=== PATIENT | female | born 1960 | race Two or more races ===

== ENCOUNTER 2018-07-27 15:41 | Inpatient (IN) | payer MEDICAID, OTHER | END 2018-07-31 15:56 | disposition home or self-care (01) | LOC: CENTRAL 22:00 → ER 15:41 → OVERFLOW 21:07 → CENTRAL 22:19 | DX: G92 Toxic encephalopathy (principal); G93.41 Metabolic encephalopathy; E11.65 Type 2 diabetes mellitus with hyperglycemia; N39.0 Urinary tract infection, site not specified; F15.10 Other stimulant abuse, uncomplicated; F32.9 Major depressive disorder, single episode, unspecified; F41.9 Anxiety disorder, unspecified; I10 Essential (primary) hypertension ==

== ENCOUNTER 2019-08-06 21:46 | Emergency (ER) | payer MEDICAID ==
[~2019-08-06] VITALS: Ht 165.1 cm; Wt 72.6 kg
[~2019-08-06 21:46] MED LIST: AML5T PO; ATOR40TA52 PO; LOSA-69 PO
[2019-08-06 23:29] LABS: Urine Bacteria MANY /hpf (None Seen); Urine Blood Negative /uL (Negative); Urine Budding Yeast MODERATE /hpf (None Seen); Urine Hyaline Cast FEW /lpf (0 - 2); Urine Mucus FEW (None Seen); Urine Specific Gravity 1.007 (1.001-1.035); Urine WBC 120 /hpf (0 - 5); Urine WBC Clumps PRESENT /hpf (None Seen)
[2019-08-06 23:45] LABS: Alcohol, Urine < 3.0 mg/dL (0-10); Amphetamine Screen, Urine POSITIVE (NEGATIVE); Barbiturate Scree,Urine NEGATIVE (NEGATIVE); Benzodiazephine Screen, Urine NEGATIVE (NEGATIVE); Cannabinoid Screen, Urine NEGATIVE (NEGATIVE); Cocaine Screen, Urine NEGATIVE (NEGATIVE); Phencyclidine Screen, Urine NEGATIVE (NEGATIVE)
[2019-08-06 23:52] LABS: Opiate Scree,Urine NEGATIVE (NEGATIVE)
[2019-08-06 23:55] LABS: Eosinophils # (auto) 0.1 10 ^3/uL (0-0.8); Hemoglobin 13.5 g/dL (12.2-16.2); Lymphocytes # (auto) 1.3 10 ^3/uL (0.4-5.4); Monocytes # (auto) 0.8 10 ^3/uL (0-1.3); Red Cell Distribution Width 13.2 % (11.8-14.3)
[2019-08-06 23:57] LABS: Basophils # (auto) 0.1 10 ^3/uL (0-0.2); Basophils % (auto) 0.7 % (0.0-2.0); Eosinophils % (auto) 1.5 % (0.0-7.0); Hematocrit 41.5 % (36.0-46.0); Lymphocytes % (auto) 14.7 % (10.0-50.0); Mean Corpuscular Hemoglobin 26.7 pg (28.0-32.0); Mean Corpuscular Hgb Conc. 32.5 g/dL (32.0-36.0); Mean Corpuscular Volume 82.3 fL (80.0-100.0); Monocytes % (auto) 8.6 % (0.0-12.0); Neutrophils # (auto) 6.5 10 ^3/uL (1.6-8.6); Neutrophils % (auto) 74.5 % (37.0-80.0); Platelet Count (auto) 147 10^3/uL (140-450); Red Blood Cells 5.05 10^6/uL (4.0-5.20); White Blood Cell 8.8 10^3/uL (4.4-10.8)
[2019-08-07 00:13] LABS: Albumin 3.1 g/dL (3.4-5.0); Anion Gap 6 (5-15); BUN/Creatinine Ratio 14.5; Blood Urea Nitrogen 25 mg/dL (7-18); Calcium 9.2 mg/dL (8.5-10.1); Carbon Dioxide 27 mmol/L (21-32); Chloride 105 mmol/L (98-107); GFR African American 39 mL/min; GFR Non-African American 32 mL/min; Glucose 291 mg/dL (74-106); Potassium 3.7 mmol/L (3.5-5.1); Sodium 138 mmol/L (136-145)
[2019-08-07] MEDS ORDERED: cefTRIAXone 1GM/50ML D5W 50 ML IV ONE (00:15)
[2019-08-07] MEDS ORDERED: SODIUM CHLORIDE 0.9% 2,000 ML IV ONE (00:15)
[2019-08-07 00:18] LABS: Alanine Aminotransferase 16 U/L (13-56); Alkaline Phosphatase 79 U/L (45-117); Aspartate Aminotransferase 14 U/L (15-37); Bilirubin, Total 0.5 mg/dL (0.2-1.0); Total Protein 7.7 g/dL (6.4-8.2)
[2019-08-07 00:24] LABS: Blood Alcohol < 3.0 mg/dL (0-5)
[2019-08-07 01:00] VITALS: BP 168/97
== END 2019-08-07 02:00 | disposition home or self-care (01) ==
LOC: EDBD 21:46 → ER 21:46
DX: R41.82 Altered mental status, unspecified (principal); F19.10 Other psychoactive substance abuse, uncomplicated; N39.0 Urinary tract infection, site not specified; E11.9 Type 2 diabetes mellitus without complications; I10 Essential (primary) hypertension; E78.5 Hyperlipidemia, unspecified
CPT/HCPCS: 36415; 70450; 80053; 80307; 80320; 81001; 82010; 82962; 83605; 83880; 84484; 85025; 87040; 87086; 93005; 96365; 99285; J0696; J7030

== ENCOUNTER 2020-06-22 20:10 | Inpatient (IN) | payer MEDICAID ==
[~2020-06-22] VITALS: Ht 167.6 cm; Wt 62.5 kg
[2020-06-22 21:18] LABS: Basophils # (auto) 0.1 10 ^3/uL (0-0.2); Eosinophils # (auto) 0.1 10 ^3/uL (0-0.8); Hemoglobin 12.9 g/dL (12.2-16.2); Monocytes # (auto) 0.4 10 ^3/uL (0-1.3); Neutrophils # (auto) 6.6 10 ^3/uL (1.6-8.6); Nucleated Red Blood Cells % 0.1 %; White Blood Cell 8.7 10^3/uL (4.4-10.8)
[2020-06-22 21:20] LABS: Basophils % (auto) 0.8 % (0.0-2.0); Eosinophils % (auto) 0.8 % (0.0-7.0); Hematocrit 39.2 % (36.0-46.0); Lymphocytes # (auto) 1.6 10 ^3/uL (0.4-5.4); Lymphocytes % (auto) 18.1 % (10.0-50.0); Mean Corpuscular Hemoglobin 26.8 pg (28.0-32.0); Mean Corpuscular Hgb Conc. 32.9 g/dL (32.0-36.0); Mean Corpuscular Volume 81.2 fL (80.0-100.0); Monocytes % (auto) 4.2 % (0.0-12.0); Neutrophils % (auto) 76.1 % (37.0-80.0); Platelet Count (auto) 170 10^3/uL (140-450); Red Blood Cells 4.83 10^6/uL (4.0-5.20); Red Cell Distribution Width 14.1 % (11.8-14.3)
[2020-06-22 21:35] LABS: Albumin 3.4 g/dL (3.4-5.0); Calcium 9.4 mg/dL (8.5-10.1); Chloride 107 mmol/L (98-107); Potassium 3.9 mmol/L (3.5-5.1); Sodium 140 mmol/L (136-145)
[2020-06-22 21:38] LABS: Lactic Acid w/Reflex 2.3 mmol/L (0.4-2.0)
[2020-06-22 21:42] LABS: Alanine Aminotransferase 25 U/L (13-56); Alkaline Phosphatase 88 U/L (45-117); Anion Gap 7 (5-15); Aspartate Aminotransferase 21 U/L (15-37); BUN/Creatinine Ratio 13.8; Bilirubin, Total 0.4 mg/dL (0.2-1.0); Blood Urea Nitrogen 15 mg/dL (7-18); Carbon Dioxide 26 mmol/L (21-32); GFR African American 66 mL/min; GFR Non-African American 54 mL/min; Glucose 198 mg/dL (74-106); Total Protein 7.8 g/dL (6.4-8.2)
[2020-06-22 21:45] LABS: INR 1.04 (0.9-1.15); Partial Thromboplastin Time 25.2 sec (23.0-31.2)
[2020-06-23] MEDS ORDERED: DEXTROSE (50%) 50ML SYRG IV PRN (05:45)
[2020-06-23] MEDS ORDERED: NITROGLYCERIN 0.4 MG SL TAB SL PRN (05:45)
[2020-06-23] MEDS ORDERED: ONDANSETRON HCL 4 MG/2 ML VIAL IV PRN (05:45)
[2020-06-23] MEDS ORDERED: HYDROcodone-ACET 5/325MG TAB PO PRN (05:45)
[2020-06-23] MEDS ORDERED: ACETAMINOPHEN 325 MG TAB PO PRN (05:45)
[2020-06-23] MEDS ORDERED: MORPHINE SULF INJ 2 MG/ML SYRINGE 1ML IV PRN (05:45)
[2020-06-23] MEDS ORDERED: DOCUSATE SOD 100 MG CAP PO PRN (05:45)
[2020-06-23] MEDS: SODIUM CHLORIDE 0.9% 1,000 ML IV SCH ×2 (06:11→22:23)
[2020-06-23 06:34] LABS: Urine Bacteria FEW /hpf (None Seen); Urine Blood 1+ /uL (Negative); Urine Specific Gravity 1.022 (1.001-1.035); Urine WBC 1040 /hpf (0 - 5); Urine WBC Clumps PRESENT /hpf (None Seen)
[2020-06-23 06:56] LABS: Alcohol, Urine < 3.0 mg/dL (0-10); Amphetamine Screen, Urine POSITIVE (NEGATIVE); Barbiturate Scree,Urine NEGATIVE (NEGATIVE); Benzodiazephine Screen, Urine NEGATIVE (NEGATIVE); Cannabinoid Screen, Urine NEGATIVE (NEGATIVE); Cocaine Screen, Urine NEGATIVE (NEGATIVE); Opiate Scree,Urine NEGATIVE (NEGATIVE); Phencyclidine Screen, Urine NEGATIVE (NEGATIVE)
[2020-06-23] MEDS: InsuLIN REG 1unit/0.01ml Soln (100units/ml) SC SCH ×4 (06:57→22:00)
[2020-06-23] MEDS: ACCU-CHEK COMFORT CURVE STRIP VI SCH ×4 (06:57→22:22)
[2020-06-23 08:00] VITALS: BP 156/81
[2020-06-23 08:34] LABS: Basophils # (auto) 0.1 10 ^3/uL (0-0.2); Eosinophils # (auto) 0.1 10 ^3/uL (0-0.8); Lymphocytes # (auto) 1.4 10 ^3/uL (0.4-5.4); Lymphocytes % (auto) 14.6 % (10.0-50.0); Monocytes # (auto) 0.5 10 ^3/uL (0-1.3); Red Blood Cells 4.69 10^6/uL (4.0-5.20); White Blood Cell 9.4 10^3/uL (4.4-10.8)
[2020-06-23 08:38] LABS: Basophils % (auto) 0.7 % (0.0-2.0); Eosinophils % (auto) 1.1 % (0.0-7.0); Hematocrit 37.9 % (36.0-46.0); Hemoglobin 12.5 g/dL (12.2-16.2); Mean Corpuscular Hemoglobin 26.6 pg (28.0-32.0); Mean Corpuscular Hgb Conc. 32.9 g/dL (32.0-36.0); Mean Corpuscular Volume 80.8 fL (80.0-100.0); Monocytes % (auto) 5.2 % (0.0-12.0); Neutrophils # (auto) 7.4 10 ^3/uL (1.6-8.6); Neutrophils % (auto) 78.4 % (37.0-80.0); Platelet Count (auto) 169 10^3/uL (140-450); Red Cell Distribution Width 14.6 % (11.8-14.3)
[2020-06-23 08:52] LABS: Potassium 3.5 mmol/L (3.5-5.1)
[2020-06-23 08:57] LABS: Albumin 3.3 g/dL (3.4-5.0); BUN/Creatinine Ratio 21.3; Bilirubin, Total 0.6 mg/dL (0.2-1.0); Calcium 9.1 mg/dL (8.5-10.1); Total Protein 7.6 g/dL (6.4-8.2)
[2020-06-23 09:00] VITALS: BP 156/81
[2020-06-23] MEDS: cefTRIAXone 1GM/50ML D5W 50 ML IV SCH (09:01)
[2020-06-23] MEDS: MULTIPLE VITAMIN TAB PO SCH (10:00)
[2020-06-23] MEDS: ASCORBIC ACID 500 MG TAB PO SCH ×2 (10:00→22:22)
[2020-06-23] MEDS: ZINC SULFATE 220mg CAP or TAB PO SCH (10:00)
[2020-06-23] MEDS: FAMOTIDINE 20 MG TAB PO SCH ×2 (10:00→22:22)
[2020-06-23] MEDS: ENOXAPARIN SOD 40 MG/0.4 ML SYRINGE SC SCH (10:17)
[2020-06-23 13:27] VITALS: BP 164/94
[2020-06-23] MEDS: LORazepam 2MG/ML-1ML VIAL IV PRN (14:09)
[2020-06-23 17:00] VITALS: BP 121/71
[2020-06-23 20:00] VITALS: BP 134/71
[2020-06-23 20:45] VITALS: BP_SYST 134; BP_SYST 154; BP_DIAS 66; BP_DIAS 71
[2020-06-24 04:30] VITALS: BP 149/70
[2020-06-24] MEDS: InsuLIN REG 1unit/0.01ml Soln (100units/ml) SC SCH ×4 (06:25→22:10)
[2020-06-24] MEDS: ACCU-CHEK COMFORT CURVE STRIP VI SCH ×4 (06:25→22:10)
[2020-06-24] MEDS: ASCORBIC ACID 500 MG TAB PO SCH ×2 (08:10→22:10)
[2020-06-24] MEDS: FAMOTIDINE 20 MG TAB PO SCH ×2 (08:10→22:10)
[2020-06-24] MEDS: ZINC SULFATE 220mg CAP or TAB PO SCH (08:10)
[2020-06-24] MEDS: MULTIPLE VITAMIN TAB PO SCH (08:10)
[2020-06-24] MEDS: ENOXAPARIN SOD 40 MG/0.4 ML SYRINGE SC SCH (08:10)
[2020-06-24] MEDS: cefTRIAXone 1GM/50ML D5W 50 ML IV SCH (08:10)
[2020-06-24 08:11] LABS: Basophils # (auto) 0 10 ^3/uL (0-0.2); Basophils % (auto) 0.8 % (0.0-2.0); Eosinophils # (auto) 0.1 10 ^3/uL (0-0.8); Eosinophils % (auto) 2.2 % (0.0-7.0); Hematocrit 37.5 % (36.0-46.0); Hemoglobin 12.6 g/dL (12.2-16.2); Lymphocytes # (auto) 1.6 10 ^3/uL (0.4-5.4); Lymphocytes % (auto) 28.1 % (10.0-50.0); Mean Corpuscular Hemoglobin 27.2 pg (28.0-32.0); Mean Corpuscular Hgb Conc. 33.6 g/dL (32.0-36.0); Monocytes # (auto) 0.4 10 ^3/uL (0-1.3); Monocytes % (auto) 7.1 % (0.0-12.0); Neutrophils # (auto) 3.5 10 ^3/uL (1.6-8.6); Neutrophils % (auto) 61.8 % (37.0-80.0); Nucleated Red Blood Cells % 0.1 %; Platelet Count (auto) 150 10^3/uL (140-450); Red Blood Cells 4.63 10^6/uL (4.0-5.20); Red Cell Distribution Width 14.4 % (11.8-14.3); White Blood Cell 5.7 10^3/uL (4.4-10.8)
[2020-06-24 08:32] VITALS: BP 121/61
[2020-06-24 08:33] LABS: Albumin 3.2 g/dL (3.4-5.0); Calcium 8.8 mg/dL (8.5-10.1); Potassium 3.5 mmol/L (3.5-5.1)
[2020-06-24 08:37] LABS: BUN/Creatinine Ratio 17.7; Bilirubin, Total 0.6 mg/dL (0.2-1.0); Total Protein 7.2 g/dL (6.4-8.2)
[2020-06-24] MEDS: ASPirin 81 mg TAB PO SCH (09:25)
[2020-06-24 13:07] VITALS: BP 163/114
[2020-06-24] MEDS: SODIUM CHLORIDE 0.9% 1,000 ML IV SCH (14:24)
[2020-06-24] MEDS: LORazepam 2MG/ML-1ML VIAL IV PRN ×3 (14:24→22:50)
[2020-06-24 17:10] VITALS: BP 150/86
[2020-06-24 22:00] VITALS: BP 163/80
[2020-06-24] MEDS: ATORVASTATIN 20 MG TAB PO SCH (22:55)
[2020-06-25 05:00] VITALS: BP 151/76
[2020-06-25] MEDS: ACCU-CHEK COMFORT CURVE STRIP VI SCH ×4 (06:24→22:50)
[2020-06-25] MEDS: InsuLIN REG 1unit/0.01ml Soln (100units/ml) SC SCH ×5 (06:30→23:31)
[2020-06-25] MEDS: SODIUM CHLORIDE 0.9% 1,000 ML IV SCH (07:45)
[2020-06-25 09:00] VITALS: BP 182/93
[2020-06-25] MEDS: cefTRIAXone 1GM/50ML D5W 50 ML IV SCH (09:26)
[2020-06-25] MEDS: ASCORBIC ACID 500 MG TAB PO SCH ×2 (09:27→22:50)
[2020-06-25] MEDS: ZINC SULFATE 220mg CAP or TAB PO SCH (09:27)
[2020-06-25] MEDS: ENOXAPARIN SOD 40 MG/0.4 ML SYRINGE SC SCH (09:27)
[2020-06-25] MEDS: MULTIPLE VITAMIN TAB PO SCH (09:27)
[2020-06-25] MEDS: FAMOTIDINE 20 MG TAB PO SCH ×2 (09:27→22:50)
[2020-06-25] MEDS: ASPirin 81 mg TAB PO SCH (09:27)
[2020-06-25] MEDS ORDERED: METOPROLOL TARTRATE 50 MG TAB PO ONE (12:30)
[2020-06-25] MEDS: LORazepam 2MG/ML-1ML VIAL IV PRN ×2 (13:51→22:50)
[2020-06-25 17:00] VITALS: BP 146/85
[2020-06-25] MEDS ORDERED: LORazepam 2MG/ML-1ML VIAL IV PRN (20:30)
[2020-06-25 21:41] VITALS: BP 169/92
[2020-06-25] MEDS: ATORVASTATIN 20 MG TAB PO SCH (22:50)
[2020-06-25] MEDS: METOPROLOL TARTRATE 50 MG TAB PO SCH (22:50)
[2020-06-26] MEDS: SODIUM CHLORIDE 0.9% 1,000 ML IV SCH ×2 (01:08→17:43)
[2020-06-26] MEDS: LORazepam 2MG/ML-1ML VIAL IV PRN ×2 (05:31→22:05)
[2020-06-26 06:09] VITALS: BP 163/94
[2020-06-26] MEDS: ACCU-CHEK COMFORT CURVE STRIP VI SCH ×4 (06:42→22:00)
[2020-06-26] MEDS: InsuLIN REG 1unit/0.01ml Soln (100units/ml) SC SCH ×4 (06:43→22:00)
[2020-06-26 09:00] VITALS: BP 162/88
[2020-06-26 09:32] LABS: Folate (Folic Acid) 12.91 ng/mL (5.38-24)
[2020-06-26] MEDS: cefTRIAXone 1GM/50ML D5W 50 ML IV SCH (09:57)
[2020-06-26] MEDS: ASPirin 81 mg TAB PO SCH (09:58)
[2020-06-26] MEDS: METOPROLOL TARTRATE 50 MG TAB PO SCH ×2 (09:58→12:16)
[2020-06-26] MEDS: ZINC SULFATE 220mg CAP or TAB PO SCH (09:58)
[2020-06-26] MEDS: MULTIPLE VITAMIN TAB PO SCH (09:59)
[2020-06-26] MEDS: FAMOTIDINE 20 MG TAB PO SCH ×2 (09:59→22:00)
[2020-06-26] MEDS: ENOXAPARIN SOD 40 MG/0.4 ML SYRINGE SC SCH (09:59)
[2020-06-26] MEDS: ASCORBIC ACID 500 MG TAB PO SCH ×2 (09:59→22:00)
[2020-06-26] MEDS ORDERED: GADOTERATE MEG 7.5 MMOL/15ml INJ (0.5MMOL/ml) IV ONE (11:56)
[2020-06-26 13:00] VITALS: BP 158/100
[2020-06-26] MEDS: cloNIDine HCL 0.1 MG TAB PO PRN (15:55)
[2020-06-26 17:00] VITALS: BP 147/81
[2020-06-26 20:00] VITALS: BP 104/75
[2020-06-26 21:00] VITALS: BP 104/75
[2020-06-26] MEDS: ATORVASTATIN 20 MG TAB PO SCH (22:00)
[2020-06-26] MEDS ORDERED: MIRTAZAPINE 30 MG TAB PO SCH (22:00)
[2020-06-27] VITALS (7 sets, daily range): BP systolic 91–164; BP diastolic 51–116
[2020-06-27] MEDS: InsuLIN REG 1unit/0.01ml Soln (100units/ml) SC SCH ×4 (06:42→22:00)
[2020-06-27] MEDS: ACCU-CHEK COMFORT CURVE STRIP VI SCH ×4 (06:46→22:00)
[2020-06-27] MEDS: FAMOTIDINE 20 MG TAB PO SCH ×2 (10:00→22:00)
[2020-06-27] MEDS: ASCORBIC ACID 500 MG TAB PO SCH ×2 (10:00→22:00)
[2020-06-27] MEDS: MULTIPLE VITAMIN TAB PO SCH (10:00)
[2020-06-27] MEDS: ZINC SULFATE 220mg CAP or TAB PO SCH (10:00)
[2020-06-27] MEDS: LORazepam 2MG/ML-1ML VIAL IV PRN ×2 (10:12→23:30)
[2020-06-27] MEDS: cefTRIAXone 1GM/50ML D5W 50 ML IV SCH (12:40)
[2020-06-27] MEDS: SODIUM CHLORIDE 0.9% 1,000 ML IV SCH (12:40)
[2020-06-27] MEDS: ENOXAPARIN SOD 40 MG/0.4 ML SYRINGE SC SCH (12:41)
[2020-06-27] MEDS: ASPirin 81 mg TAB PO SCH (12:41)
[2020-06-27] MEDS: MIRTAZAPINE 30 MG TAB PO SCH (22:00)
[2020-06-27] MEDS: ATORVASTATIN 20 MG TAB PO SCH (22:00)
[2020-06-27 22:29] LABS: INR 1.04 (0.9-1.15)
[2020-06-27] MEDS: cloNIDine HCL 0.1 MG TAB PO PRN (23:30)
[2020-06-28] MEDS: SODIUM CHLORIDE 0.9% 1,000 ML IV SCH ×2 (02:39→19:05)
[2020-06-28 05:00] VITALS: BP 105/58
[2020-06-28] MEDS: InsuLIN REG 1unit/0.01ml Soln (100units/ml) SC SCH ×4 (06:28→22:00)
[2020-06-28] MEDS: ACCU-CHEK COMFORT CURVE STRIP VI SCH ×4 (06:29→22:00)
[2020-06-28 08:00] VITALS: BP 135/86
[2020-06-28] MEDS ORDERED: LIDOCAINE VISCOUS 2% 15ML UD PO ONE (08:15)
[2020-06-28] MEDS ORDERED: MIDAZOLAM HCL 1MG/1ML-2 ML VIAL IV ONE (08:15)
[2020-06-28] MEDS ORDERED: fentaNYL CITRATE 100 MCG/2 ML VL IV ONE (08:15)
[2020-06-28] MEDS ORDERED: ONDANSETRON HCL 4 MG/2 ML VIAL IV ONE (08:15)
[2020-06-28 09:00] VITALS: BP 158/84
[2020-06-28] MEDS: ASPirin 81 mg TAB PO SCH (10:55)
[2020-06-28] MEDS: FAMOTIDINE 20 MG TAB PO SCH ×2 (10:55→22:00)
[2020-06-28] MEDS: cefTRIAXone 1GM/50ML D5W 50 ML IV SCH (10:55)
[2020-06-28 13:00] VITALS: BP 154/81
[2020-06-28] MEDS: cloNIDine HCL 0.1 MG TAB PO SCH (14:43)
[2020-06-28] MEDS: LORazepam 2MG/ML-1ML VIAL IV PRN (18:32)
[2020-06-28 20:00] VITALS: BP 160/90
[2020-06-28 22:00] VITALS: BP 175/110
[2020-06-28] MEDS: ATORVASTATIN 20 MG TAB PO SCH (22:00)
[2020-06-28] MEDS: MIRTAZAPINE 30 MG TAB PO SCH (22:00)
[2020-06-29] MEDS ORDERED: LABETALOL HCL 5 MG/ML 4ML SYRINGE IV ONE ×2 (01:15→01:45)
[2020-06-29 05:00] VITALS: BP 187/92
[2020-06-29] MEDS: cloNIDine HCL 0.1 MG TAB PO SCH ×3 (06:00→22:35)
[2020-06-29] MEDS: InsuLIN REG 1unit/0.01ml Soln (100units/ml) SC SCH ×4 (06:45→22:00)
[2020-06-29] MEDS: ACCU-CHEK COMFORT CURVE STRIP VI SCH ×4 (06:46→22:00)
[2020-06-29] MEDS: cefTRIAXone 1GM/50ML D5W 50 ML IV SCH (08:55)
[2020-06-29 09:00] VITALS: BP 129/82
[2020-06-29 12:49] VITALS: BP 124/73
[2020-06-29] MEDS: METOPROLOL TARTRATE 50 MG TAB PO SCH ×3 (12:50→22:38)
[2020-06-29] MEDS: ASPirin 81 mg TAB PO SCH (12:51)
[2020-06-29] MEDS: LISINOPRIL 20 MG TAB PO SCH (12:51)
[2020-06-29] MEDS: FAMOTIDINE 20 MG TAB PO SCH ×2 (12:51→22:39)
[2020-06-29] MEDS: SODIUM CHLORIDE 0.9% 1,000 ML IV SCH ×2 (12:52→23:42)
[2020-06-29 16:35] VITALS: BP 134/62
[2020-06-29 22:00] VITALS: BP 165/110
[2020-06-29] MEDS: LORazepam 2MG/ML-1ML VIAL IV PRN ×2 (22:21)
[2020-06-29] MEDS: ATORVASTATIN 20 MG TAB PO SCH (22:40)
[2020-06-29] MEDS: MIRTAZAPINE 30 MG TAB PO SCH (22:42)
[2020-06-30 05:18] VITALS: BP 150/100
[2020-06-30] MEDS: cloNIDine HCL 0.1 MG TAB PO SCH ×3 (05:33→22:56)
[2020-06-30] MEDS: InsuLIN REG 1unit/0.01ml Soln (100units/ml) SC SCH ×4 (06:18→21:59)
[2020-06-30] MEDS: ACCU-CHEK COMFORT CURVE STRIP VI SCH ×4 (06:18→21:45)
[2020-06-30 08:34] VITALS: BP 138/92
[2020-06-30] MEDS: METOPROLOL TARTRATE 50 MG TAB PO SCH ×2 (10:00→22:56)
[2020-06-30] MEDS: cefTRIAXone 1GM/50ML D5W 50 ML IV SCH (10:01)
[2020-06-30] MEDS: FAMOTIDINE 20 MG TAB PO SCH ×2 (10:01→22:55)
[2020-06-30] MEDS: ASPirin 81 mg TAB PO SCH (10:01)
[2020-06-30] MEDS: LISINOPRIL 20 MG TAB PO SCH (10:02)
[2020-06-30] MEDS: LORazepam 2MG/ML-1ML VIAL IV PRN ×2 (12:15→22:00)
[2020-06-30 12:30] VITALS: BP 163/97
[2020-06-30 16:43] VITALS: BP 160/87
[2020-06-30] MEDS: SODIUM CHLORIDE 0.9% 1,000 ML IV SCH (21:05)
[2020-06-30 22:00] VITALS: BP 158/101
[2020-06-30] MEDS: MIRTAZAPINE 30 MG TAB PO SCH (22:55)
[2020-06-30] MEDS: ATORVASTATIN 20 MG TAB PO SCH (22:56)
[2020-06-30] MEDS ORDERED: HALOPERIDOL LACTATE 5 MG/ML INJ VIAL IM PRN (23:45)
[2020-07-01 05:00] VITALS: BP 105/53
[2020-07-01] MEDS: cloNIDine HCL 0.1 MG TAB PO SCH ×3 (05:11→22:00)
[2020-07-01 06:18] LABS: Basophils # (auto) 0.1 10 ^3/uL (0-0.2); Basophils % (auto) 0.9 % (0.0-2.0); Eosinophils # (auto) 0.2 10 ^3/uL (0-0.8); Eosinophils % (auto) 2.2 % (0.0-7.0); Hematocrit 37.5 % (36.0-46.0); Hemoglobin 12.5 g/dL (12.2-16.2); Lymphocytes # (auto) 2.1 10 ^3/uL (0.4-5.4); Lymphocytes % (auto) 30.4 % (10.0-50.0); Mean Corpuscular Hemoglobin 27.1 pg (28.0-32.0); Mean Corpuscular Hgb Conc. 33.3 g/dL (32.0-36.0); Mean Corpuscular Volume 81.5 fL (80.0-100.0); Monocytes # (auto) 0.4 10 ^3/uL (0-1.3); Monocytes % (auto) 6.2 % (0.0-12.0); Neutrophils # (auto) 4.1 10 ^3/uL (1.6-8.6); Neutrophils % (auto) 60.3 % (37.0-80.0); Nucleated Red Blood Cells % 0.1 %; Platelet Count (auto) 153 10^3/uL (140-450); Red Cell Distribution Width 14.6 % (11.8-14.3); White Blood Cell 6.8 10^3/uL (4.4-10.8)
[2020-07-01 06:33] LABS: Potassium 3.6 mmol/L (3.5-5.1)
[2020-07-01] MEDS: InsuLIN REG 1unit/0.01ml Soln (100units/ml) SC SCH ×4 (06:41→22:00)
[2020-07-01] MEDS: ACCU-CHEK COMFORT CURVE STRIP VI SCH ×4 (06:41→22:42)
[2020-07-01 06:49] LABS: Albumin 3.1 g/dL (3.4-5.0); BUN/Creatinine Ratio 20.6; Bilirubin, Total 0.6 mg/dL (0.2-1.0); Calcium 9.1 mg/dL (8.5-10.1)
[2020-07-01 08:28] VITALS: BP 136/83
[2020-07-01] MEDS: cefTRIAXone 1GM/50ML D5W 50 ML IV SCH (09:00)
[2020-07-01] MEDS: LISINOPRIL 20 MG TAB PO SCH (10:00)
[2020-07-01] MEDS: ASPirin 81 mg TAB PO SCH (10:00)
[2020-07-01] MEDS: METOPROLOL TARTRATE 50 MG TAB PO SCH ×2 (10:00→22:00)
[2020-07-01] MEDS: FAMOTIDINE 20 MG TAB PO SCH ×2 (10:00→22:00)
[2020-07-01 12:30] VITALS: BP 120/57
[2020-07-01] MEDS: SODIUM CHLORIDE 0.9% 1,000 ML IV SCH (13:45)
[2020-07-01 17:04] VITALS: BP 148/86
[2020-07-01] MEDS: LORazepam 2MG/ML-1ML VIAL IV PRN (17:06)
[2020-07-01 20:00] VITALS: BP 139/70
[2020-07-01 22:00] VITALS: BP 139/70
[2020-07-01] MEDS: MIRTAZAPINE 30 MG TAB PO SCH (22:00)
[2020-07-01] MEDS: ATORVASTATIN 20 MG TAB PO SCH (22:00)
[2020-07-02 05:00] VITALS: BP 136/73
[2020-07-02] MEDS: cloNIDine HCL 0.1 MG TAB PO SCH ×3 (05:32→22:28)
[2020-07-02] MEDS: SODIUM CHLORIDE 0.9% 1,000 ML IV SCH (05:58)
[2020-07-02] MEDS: ACCU-CHEK COMFORT CURVE STRIP VI SCH ×4 (06:20→22:09)
[2020-07-02] MEDS: InsuLIN REG 1unit/0.01ml Soln (100units/ml) SC SCH ×4 (06:21→22:26)
[2020-07-02] MEDS: cefTRIAXone 1GM/50ML D5W 50 ML IV SCH (08:21)
[2020-07-02 09:00] VITALS: BP 131/72
[2020-07-02] MEDS: FAMOTIDINE 20 MG TAB PO SCH ×2 (10:00→22:09)
[2020-07-02] MEDS: LISINOPRIL 20 MG TAB PO SCH (10:00)
[2020-07-02] MEDS: ASPirin 81 mg TAB PO SCH (10:00)
[2020-07-02] MEDS: METOPROLOL TARTRATE 50 MG TAB PO SCH ×2 (10:00→22:28)
[2020-07-02] MEDS ORDERED: cloNIDine HCL 0.1 MG TAB PO PRN (12:00)
[2020-07-02] MEDS ORDERED: traMADol HCL 50 MG TAB PO PRN (12:15)
[2020-07-02 13:00] VITALS: BP 155/98
[2020-07-02] MEDS: LORazepam 2MG/ML-1ML VIAL IV PRN (14:47)
[2020-07-02 17:00] VITALS: BP 146/92
[2020-07-02 22:00] VITALS: BP 163/92
[2020-07-02] MEDS: ATORVASTATIN 20 MG TAB PO SCH (22:09)
[2020-07-02] MEDS: MIRTAZAPINE 30 MG TAB PO SCH (22:09)
[2020-07-03] MEDS: SODIUM CHLORIDE 0.9% 1,000 ML IV SCH ×2 (02:45→15:45)
[2020-07-03 05:11] VITALS: BP 142/58
[2020-07-03] MEDS: cloNIDine HCL 0.1 MG TAB PO SCH ×3 (05:44→22:57)
[2020-07-03] MEDS: ACCU-CHEK COMFORT CURVE STRIP VI SCH ×4 (06:36→22:58)
[2020-07-03] MEDS: InsuLIN REG 1unit/0.01ml Soln (100units/ml) SC SCH ×4 (06:36→23:15)
[2020-07-03 08:00] VITALS: BP 154/85
[2020-07-03 08:56] VITALS: BP 146/74
[2020-07-03] MEDS: cefTRIAXone 1GM/50ML D5W 50 ML IV SCH (09:47)
[2020-07-03] MEDS: ASPirin 81 mg TAB PO SCH (09:47)
[2020-07-03] MEDS: METOPROLOL TARTRATE 50 MG TAB PO SCH ×2 (09:49→22:57)
[2020-07-03] MEDS: FAMOTIDINE 20 MG TAB PO SCH ×2 (09:49→22:57)
[2020-07-03] MEDS: LISINOPRIL 20 MG TAB PO SCH (09:50)
[2020-07-03 13:00] VITALS: BP 127/54
[2020-07-03] MEDS: LORazepam 2MG/ML-1ML VIAL IV PRN (16:28)
[2020-07-03 16:55] VITALS: BP 155/77
[2020-07-03 22:00] VITALS: BP 172/96
[2020-07-03] MEDS: ATORVASTATIN 20 MG TAB PO SCH (22:57)
[2020-07-03] MEDS: MIRTAZAPINE 30 MG TAB PO SCH (22:58)
[2020-07-04 05:00] VITALS: BP 140/77
[2020-07-04] MEDS: cloNIDine HCL 0.1 MG TAB PO SCH ×3 (06:00→22:07)
[2020-07-04] MEDS: ACCU-CHEK COMFORT CURVE STRIP VI SCH ×4 (06:17→22:09)
[2020-07-04] MEDS: InsuLIN REG 1unit/0.01ml Soln (100units/ml) SC SCH ×4 (06:24→22:21)
[2020-07-04 08:00] VITALS: BP 134/67
[2020-07-04] MEDS: SODIUM CHLORIDE 0.9% 1,000 ML IV SCH (08:25)
[2020-07-04 09:00] VITALS: BP 134/67
[2020-07-04] MEDS: ASPirin 81 mg TAB PO SCH (09:47)
[2020-07-04] MEDS: METOPROLOL TARTRATE 50 MG TAB PO SCH ×2 (09:47→22:08)
[2020-07-04] MEDS: LISINOPRIL 20 MG TAB PO SCH (09:48)
[2020-07-04] MEDS: FAMOTIDINE 20 MG TAB PO SCH ×2 (09:49→22:08)
[2020-07-04] MEDS: CIPROFLOXACIN HCL 500 MG TAB PO SCH ×2 (09:49→22:08)
[2020-07-04 13:00] VITALS: BP 156/89
[2020-07-04 22:00] VITALS: BP 163/85
[2020-07-04] MEDS: ATORVASTATIN 20 MG TAB PO SCH (22:08)
[2020-07-04] MEDS: MIRTAZAPINE 30 MG TAB PO SCH (22:09)
[2020-07-04] MEDS: LORazepam 2MG/ML-1ML VIAL IV PRN (22:21)
[2020-07-05] MEDS: SODIUM CHLORIDE 0.9% 1,000 ML IV SCH ×2 (01:35→17:48)
[2020-07-05 05:00] VITALS: BP 138/75
[2020-07-05] MEDS: cloNIDine HCL 0.1 MG TAB PO SCH ×3 (06:00→22:33)
[2020-07-05] MEDS: ACCU-CHEK COMFORT CURVE STRIP VI SCH ×4 (06:22→22:34)
[2020-07-05] MEDS: InsuLIN REG 1unit/0.01ml Soln (100units/ml) SC SCH ×4 (06:23→22:35)
[2020-07-05 09:21] VITALS: BP 130/70
[2020-07-05] MEDS: ASPirin 81 mg TAB PO SCH ×2 (10:00→16:14)
[2020-07-05] MEDS: LISINOPRIL 20 MG TAB PO SCH ×2 (10:00→16:18)
[2020-07-05] MEDS: METOPROLOL TARTRATE 50 MG TAB PO SCH ×2 (10:00→22:34)
[2020-07-05] MEDS: CIPROFLOXACIN HCL 500 MG TAB PO SCH ×2 (10:00→22:33)
[2020-07-05] MEDS: FAMOTIDINE 20 MG TAB PO SCH ×2 (10:00→22:34)
[2020-07-05 13:09] VITALS: BP 111/66
[2020-07-05 22:00] VITALS: BP 148/76
[2020-07-05] MEDS: ATORVASTATIN 20 MG TAB PO SCH (22:33)
[2020-07-05] MEDS: MIRTAZAPINE 30 MG TAB PO SCH (22:34)
[2020-07-06 05:00] VITALS: BP 127/67
[2020-07-06] MEDS: cloNIDine HCL 0.1 MG TAB PO SCH ×3 (06:01→21:54)
[2020-07-06] MEDS: ACCU-CHEK COMFORT CURVE STRIP VI SCH ×4 (06:20→21:56)
[2020-07-06] MEDS: InsuLIN REG 1unit/0.01ml Soln (100units/ml) SC SCH ×4 (06:23→22:19)
[2020-07-06] MEDS: ASPirin 81 mg TAB PO SCH (12:03)
[2020-07-06] MEDS: CIPROFLOXACIN HCL 500 MG TAB PO SCH ×2 (12:04→21:54)
[2020-07-06] MEDS: FAMOTIDINE 20 MG TAB PO SCH ×2 (12:04→21:55)
[2020-07-06] MEDS: METOPROLOL TARTRATE 50 MG TAB PO SCH ×2 (12:04→21:55)
[2020-07-06] MEDS: SODIUM CHLORIDE 0.9% 1,000 ML IV SCH (12:05)
[2020-07-06] MEDS: LISINOPRIL 20 MG TAB PO SCH (12:05)
[2020-07-06 13:00] VITALS: BP 142/97
[2020-07-06] MEDS: LORazepam 2MG/ML-1ML VIAL IV PRN ×2 (15:36→22:01)
[2020-07-06 17:00] VITALS: BP 132/78
[2020-07-06] MEDS: MIRTAZAPINE 30 MG TAB PO SCH (21:54)
[2020-07-06] MEDS: ATORVASTATIN 20 MG TAB PO SCH (21:54)
[2020-07-06 22:20] VITALS: BP 135/76
[2020-07-07] MEDS: LORazepam 2MG/ML-1ML VIAL IV PRN (00:32)
[2020-07-07] MEDS: SODIUM CHLORIDE 0.9% 1,000 ML IV SCH (03:10)
[2020-07-07 05:14] VITALS: BP 135/70
[2020-07-07] MEDS: cloNIDine HCL 0.1 MG TAB PO SCH ×2 (06:44→14:00)
[2020-07-07] MEDS: ACCU-CHEK COMFORT CURVE STRIP VI SCH ×2 (06:44→11:30)
[2020-07-07] MEDS: InsuLIN REG 1unit/0.01ml Soln (100units/ml) SC SCH ×2 (06:54→11:30)
[2020-07-07] MEDS ORDERED: OXYB5TAB24 PO (08:34)
[2020-07-07] MEDS ORDERED: ATOR20TA PO (08:34)
[2020-07-07] MEDS ORDERED: CITA-73 PO (08:34)
[2020-07-07] MEDS ORDERED: INS7030I SC ×2 (08:34)
[2020-07-07] MEDS: CIPROFLOXACIN HCL 500 MG TAB PO SCH (10:00)
[2020-07-07] MEDS: METOPROLOL TARTRATE 50 MG TAB PO SCH (10:00)
[2020-07-07] MEDS: FAMOTIDINE 20 MG TAB PO SCH (10:00)
[2020-07-07] MEDS: LISINOPRIL 20 MG TAB PO SCH (10:00)
[2020-07-07] MEDS: ASPirin 81 mg TAB PO SCH (10:00)
[2020-07-07 10:58] VITALS: BP 106/62
== END 2020-07-07 13:30 | disposition hospice, home (50) | DRG 720 ==
LOC: ER 20:10 → EDBD 20:10 → TELE 06-23 05:43 → TELE-CENTR 06-23 09:20
PROVIDERS: ADMIT Nurse Practitioner Family; ATTEND Family Medicine
PROC: 009U3ZX Drainage of Spinal Canal, Percutaneous Approach, Diagnostic (ICD-10-PCS; principal; 2020-06-28)
DX: A41.9 Sepsis, unspecified organism (principal); I63.9 Cerebral infarction, unspecified; G93.41 Metabolic encephalopathy; G93.1 Anoxic brain damage, not elsewhere classified; N39.0 Urinary tract infection, site not specified; E11.65 Type 2 diabetes mellitus with hyperglycemia; R29.6 Repeated falls; F17.200 Nicotine dependence, unspecified, uncomplicated; I10 Essential (primary) hypertension; F15.10 Other stimulant abuse, uncomplicated; E86.0 Dehydration; E78.5 Hyperlipidemia, unspecified; F41.8 Other specified anxiety disorders; B96.20 Unspecified Escherichia coli [E. coli] as the cause of diseases classified elsewhere; R56.9 Unspecified convulsions; F19.10 Other psychoactive substance abuse, uncomplicated; Z20.822 Contact with and (suspected) exposure to COVID-19; Z51.5 Encounter for palliative care; Z79.4 Long term (current) use of insulin; Z79.82 Long term (current) use of aspirin; Z79.899 Other long term (current) drug therapy; Z83.3 Family history of diabetes mellitus; Z86.73 Personal history of transient ischemic attack (TIA), and cerebral infarction without residual deficits; Z88.8 Allergy status to other drugs, medicaments and biological substances
CPT/HCPCS: 36415; 70450; 70551; 71045; 80053; 80307; 81001; 82607; 82746; 82962; 83036; 83605; 83880; 84443; 84484; 85025; 85610; 85730; 87040; 87086; 87088; 87186; 87426; 92610; 93005; 93306; 93886; 95819; 96365; 96372; 97110; 97530; G0378; J0696; J1815; J3490

== ENCOUNTER 2020-07-27 02:47 | Inpatient (IN) | payer MEDICAID ==
[2020-07-27] VITALS (15 sets, daily range): BP systolic 87–133; BP diastolic 48–74
[~2020-07-27] VITALS: Ht 165.1 cm; Wt 64.4 kg
[~2020-07-27 02:47] MED LIST changes: -AML5T PO; +ATOR20TA PO; -ATOR40TA52 PO; +CITA-73 PO; +INS7030I SC; +OXYB5TAB24 PO
[2020-07-27] MEDS ORDERED: ACETAMINOPHEN 325 MG RECT SUPP PR ONE (03:00)
[2020-07-27] MEDS ORDERED: ACETAMINOPHEN 650 MG RECT SUPP PR ONE (03:15)
[2020-07-27 03:27] LABS: Basophils # (auto) 0.1 10 ^3/uL (0-0.2); Basophils % (auto) 1.1 % (0.0-2.0); Eosinophils # (auto) 0 10 ^3/uL (0-0.8); Eosinophils % (auto) 0.2 % (0.0-7.0); Hematocrit 41.8 % (36.0-46.0); Hemoglobin 13.2 g/dL (12.2-16.2); Lymphocytes # (auto) 1.9 10 ^3/uL (0.4-5.4); Lymphocytes % (auto) 16.4 % (10.0-50.0); Mean Corpuscular Hgb Conc. 31.6 g/dL (32.0-36.0); Mean Corpuscular Volume 85.2 fL (80.0-100.0); Monocytes # (auto) 0.9 10 ^3/uL (0-1.3); Monocytes % (auto) 7.4 % (0.0-12.0); Neutrophils # (auto) 8.6 10 ^3/uL (1.6-8.6); Neutrophils % (auto) 74.9 % (37.0-80.0); Platelet Count (auto) 178 10^3/uL (140-450); Red Cell Distribution Width 15.1 % (11.8-14.3); White Blood Cell 11.5 10^3/uL (4.4-10.8)
[2020-07-27 03:43] LABS: INR 1.09 (0.9-1.15)
[2020-07-27 03:45] LABS: Albumin 2.9 g/dL (3.4-5.0); BUN/Creatinine Ratio 14.7; Calcium 8.9 mg/dL (8.5-10.1); Magnesium 2.9 mg/dL (1.6-2.6)
[2020-07-27] MEDS ORDERED: VANCOMYCIN 1GM/250ML 250 ML IV ONE (03:45)
[2020-07-27] MEDS ORDERED: PIPERACILLIN-TAZOB 3.375GM 100 ML IV ONE (03:45)
[2020-07-27] MEDS ORDERED: LACTATED RINGER'S 500 ML IV ONE (03:45)
[2020-07-27 03:50] LABS: Bilirubin, Total 0.4 mg/dL (0.2-1.0); Lactic Acid w/Reflex 2.3 mmol/L (0.4-2.0); Total Protein 7.9 g/dL (6.4-8.2)
[2020-07-27 03:56] LABS: Amphetamine Screen, Urine NEGATIVE (NEGATIVE); Barbiturate Scree,Urine NEGATIVE (NEGATIVE); Benzodiazephine Screen, Urine NEGATIVE (NEGATIVE); Cocaine Screen, Urine NEGATIVE (NEGATIVE); Opiate Scree,Urine POSITIVE (NEGATIVE); Phencyclidine Screen, Urine NEGATIVE (NEGATIVE)
[2020-07-27 04:04] LABS: Cannabinoid Screen, Urine POSITIVE (NEGATIVE)
[2020-07-27] MEDS ORDERED: VANCOMYCIN PER PHARMACY 0 MG IV SCH ×2 (07:15→13:15)
[2020-07-27] MEDS ORDERED: DEXTROSE (50%) 50ML SYRG IV PRN (07:15)
[2020-07-27] MEDS ORDERED: ACETAMINOPHEN 325 MG TAB PO PRN (07:15)
[2020-07-27] MEDS ORDERED: DOCUSATE SOD 100 MG CAP PO PRN (07:15)
[2020-07-27] MEDS ORDERED: ONDANSETRON HCL 4 MG/2 ML VIAL IV PRN (07:15)
[2020-07-27] MEDS: ACCU-CHEK COMFORT CURVE STRIP VI SCH ×5 (08:28→23:45)
[2020-07-27] MEDS: InsuLIN REG 1unit/0.01ml Soln (100units/ml) SC SCH ×5 (08:31→23:45)
[2020-07-27] MEDS: SODIUM CHLORIDE 0.9% 1,000 ML IV SCH ×2 (10:45→17:00)
[2020-07-27] MEDS ORDERED: cefTRIAXone 1GM/50ML D5W 50 ML IV ONE (13:00)
[2020-07-27 13:26] LABS: Urine Bacteria NONE SEEN /hpf (None Seen); Urine Blood 2+ /uL (Negative); Urine Budding Yeast LOADED /hpf (None Seen); Urine Hyaline Cast MANY /lpf (0 - 2); Urine WBC 133 /hpf (0 - 5)
[2020-07-27] MEDS ORDERED: PIPERACILLIN-TAZOB 2.25GM 100 ML IV SCH (14:00)
[2020-07-27] MEDS: D5W 5% 1,000 ML IV SCH (22:00)
[2020-07-27 23:32] LABS: Protein, Urine 113.9 mg/dL (0.0-11.9)
[2020-07-27 23:42] LABS: Urine Bacteria NONE SEEN /hpf (None Seen); Urine Blood 2+ /uL (Negative); Urine Budding Yeast MANY /hpf (None Seen); Urine Hyaline Cast FEW /lpf (0 - 2); Urine Specific Gravity 1.019 (1.001-1.035); Urine WBC 21 /hpf (0 - 5)
[2020-07-28] VITALS (19 sets, daily range): BP systolic 90–139; BP diastolic 45–90
[2020-07-28] MEDS: ACCU-CHEK COMFORT CURVE STRIP VI SCH ×6 (04:24→23:48)
[2020-07-28] MEDS: InsuLIN REG 1unit/0.01ml Soln (100units/ml) SC SCH ×6 (04:25→23:49)
[2020-07-28 06:01] LABS: Potassium 4.2 mmol/L (3.5-5.1)
[2020-07-28 06:10] LABS: Albumin 2.3 g/dL (3.4-5.0); BUN/Creatinine Ratio 29.8; Bilirubin, Total 0.4 mg/dL (0.2-1.0); Calcium 8.3 mg/dL (8.5-10.1); Total Protein 6.5 g/dL (6.4-8.2)
[2020-07-28 06:22] LABS: Eosinophils # (auto) 0.3 10 ^3/uL (0-0.8); Hematocrit 37.8 % (36.0-46.0); Mean Corpuscular Hgb Conc. 31.7 g/dL (32.0-36.0)
[2020-07-28 06:26] LABS: Basophils # (auto) 0.1 10 ^3/uL (0-0.2); Basophils % (auto) 0.8 % (0.0-2.0); Eosinophils % (auto) 2.1 % (0.0-7.0); Lymphocytes % (auto) 15.2 % (10.0-50.0); Mean Corpuscular Hemoglobin 26.6 pg (28.0-32.0); Mean Corpuscular Volume 83.8 fL (80.0-100.0); Monocytes % (auto) 7.3 % (0.0-12.0); Neutrophils # (auto) 9.8 10 ^3/uL (1.6-8.6); Neutrophils % (auto) 74.6 % (37.0-80.0); Nucleated Red Blood Cells % 0.1 %; Platelet Count (auto) 122 10^3/uL (140-450); Red Blood Cells 4.51 10^6/uL (4.0-5.20); Red Cell Distribution Width 14.4 % (11.8-14.3); White Blood Cell 13.1 10^3/uL (4.4-10.8)
[2020-07-28] MEDS: D5W 5% 1,000 ML IV SCH ×2 (08:05→17:45)
[2020-07-28] MEDS ORDERED: CLINDAMYCIN 600 MG/4 ML VL IM SCH (09:00)
[2020-07-28] MEDS: CLINDAMYCIN 300MG IV 50 ML IV SCH ×3 (09:40→21:22)
[2020-07-28] MEDS ORDERED: DOXYCYCLINE 100MG/250ML 250 ML IV ONE (09:45)
[2020-07-28] MEDS: cefTRIAXone 1GM/50ML D5W 50 ML IV SCH (10:38)
[2020-07-28] MEDS: DOXYCYCLINE 100MG/250ML 250 ML IV SCH (23:14)
[2020-07-29] VITALS: BP 143/67
[2020-07-29] MEDS: D5W 5% 1,000 ML IV SCH ×3 (02:41→23:32)
[2020-07-29 04:00] VITALS: BP 144/79
[2020-07-29] MEDS: ACCU-CHEK COMFORT CURVE STRIP VI SCH ×6 (04:07→23:33)
[2020-07-29] MEDS: InsuLIN REG 1unit/0.01ml Soln (100units/ml) SC SCH ×3 (04:12→12:12)
[2020-07-29] MEDS: MORPHINE SULF INJ 2 MG/ML SYRINGE 1ML IV PRN ×3 (04:51→20:39)
[2020-07-29 05:29] LABS: Basophils # (auto) 0.1 10 ^3/uL (0-0.2); Basophils % (auto) 1.1 % (0.0-2.0); Eosinophils # (auto) 0.4 10 ^3/uL (0-0.8); Eosinophils % (auto) 4.7 % (0.0-7.0); Hematocrit 35.1 % (36.0-46.0); Hemoglobin 11.6 g/dL (12.2-16.2); Lymphocytes # (auto) 1.7 10 ^3/uL (0.4-5.4); Mean Corpuscular Hemoglobin 27.7 pg (28.0-32.0); Mean Corpuscular Hgb Conc. 33.1 g/dL (32.0-36.0); Mean Corpuscular Volume 83.5 fL (80.0-100.0); Monocytes # (auto) 0.5 10 ^3/uL (0-1.3); Monocytes % (auto) 5.9 % (0.0-12.0); Neutrophils # (auto) 6.2 10 ^3/uL (1.6-8.6); Neutrophils % (auto) 69.3 % (37.0-80.0); Platelet Count (auto) 127 10^3/uL (140-450); Red Cell Distribution Width 14.3 % (11.8-14.3); White Blood Cell 8.9 10^3/uL (4.4-10.8)
[2020-07-29] MEDS: CLINDAMYCIN 300MG IV 50 ML IV SCH ×3 (05:34→21:59)
[2020-07-29 05:48] LABS: Calcium 8.5 mg/dL (8.5-10.1); Potassium 3.4 mmol/L (3.5-5.1)
[2020-07-29 05:50] LABS: BUN/Creatinine Ratio 44.2
[2020-07-29] MEDS ORDERED: POTASSIUM CHL 20MEQ/100ML 100 ML IV ONE (06:30)
[2020-07-29 08:00] VITALS: BP 109/76
[2020-07-29] MEDS: cefTRIAXone 1GM/50ML D5W 50 ML IV SCH (09:08)
[2020-07-29] MEDS: DOXYCYCLINE 100MG/250ML 250 ML IV SCH (10:38)
[2020-07-29 12:00] VITALS: BP 127/79
[2020-07-29 17:00] VITALS: BP 143/107
[2020-07-29] MEDS: HYDROcodone-ACET 5/325MG TAB PO PRN (18:16)
[2020-07-30] MEDS: MORPHINE SULF INJ 2 MG/ML SYRINGE 1ML IV PRN ×3 (02:21→18:19)
[2020-07-30] MEDS: ACCU-CHEK COMFORT CURVE STRIP VI SCH ×4 (04:00→17:55)
[2020-07-30] MEDS: CLINDAMYCIN 300MG IV 50 ML IV SCH ×3 (05:13→21:29)
[2020-07-30 05:54] LABS: Basophils # (auto) 0 10 ^3/uL (0-0.2); Basophils % (auto) 0.7 % (0.0-2.0); Eosinophils # (auto) 0.3 10 ^3/uL (0-0.8); Hematocrit 34.2 % (36.0-46.0); Hemoglobin 11.2 g/dL (12.2-16.2); Lymphocytes # (auto) 2.1 10 ^3/uL (0.4-5.4); Lymphocytes % (auto) 29.3 % (10.0-50.0); Mean Corpuscular Hemoglobin 27.3 pg (28.0-32.0); Mean Corpuscular Hgb Conc. 32.8 g/dL (32.0-36.0); Mean Corpuscular Volume 83.1 fL (80.0-100.0); Monocytes # (auto) 0.4 10 ^3/uL (0-1.3); Neutrophils # (auto) 4.3 10 ^3/uL (1.6-8.6); Nucleated Red Blood Cells % 0.1 %; Platelet Count (auto) 135 10^3/uL (140-450); Red Blood Cells 4.11 10^6/uL (4.0-5.20); Red Cell Distribution Width 13.7 % (11.8-14.3); White Blood Cell 7.2 10^3/uL (4.4-10.8)
[2020-07-30 06:08] LABS: Potassium 4.1 mmol/L (3.5-5.1)
[2020-07-30 06:13] VITALS: BP 157/88
[2020-07-30 06:14] LABS: BUN/Creatinine Ratio 35.9; Calcium 8.8 mg/dL (8.5-10.1)
[2020-07-30 09:00] VITALS: BP 149/80
[2020-07-30] MEDS: cefTRIAXone 1GM/50ML D5W 50 ML IV SCH (09:05)
[2020-07-30] MEDS: D5W 5% 1,000 ML IV SCH ×2 (09:30→19:44)
[2020-07-30] MEDS ORDERED: DEXTROSE (50%) 50ML SYRG IV PRN (12:00)
[2020-07-30] MEDS: InsuLIN REG 1unit/0.01ml Soln (100units/ml) SC SCH ×2 (12:00→17:56)
[2020-07-30 13:00] VITALS: BP 144/86
[2020-07-30] MEDS: LORazepam 0.5 MG TAB PO PRN ×2 (15:01→21:41)
[2020-07-30 16:33] VITALS: BP 139/84
[2020-07-30 22:00] VITALS: BP 150/76
[2020-07-31] MEDS: InsuLIN REG 1unit/0.01ml Soln (100units/ml) SC SCH ×4 (00:02→18:00)
[2020-07-31] MEDS: ACCU-CHEK COMFORT CURVE STRIP VI SCH ×4 (00:02→18:00)
[2020-07-31] MEDS: MORPHINE SULF INJ 2 MG/ML SYRINGE 1ML IV PRN ×3 (01:41→16:41)
[2020-07-31 05:00] VITALS: BP 167/99
[2020-07-31] MEDS: D5W 5% 1,000 ML IV SCH ×2 (05:22→15:45)
[2020-07-31] MEDS: CLINDAMYCIN 300MG IV 50 ML IV SCH ×2 (05:43→14:23)
[2020-07-31] MEDS: cefTRIAXone 1GM/50ML D5W 50 ML IV SCH (08:31)
[2020-07-31 09:00] VITALS: BP 133/60
[2020-07-31] MEDS: HYDROcodone-ACET 5/325MG TAB PO PRN (11:21)
[2020-07-31 12:08] LABS: Basophils # (auto) 0.1 10 ^3/uL (0-0.2); Basophils % (auto) 0.9 % (0.0-2.0); Eosinophils # (auto) 0.3 10 ^3/uL (0-0.8); Eosinophils % (auto) 4.2 % (0.0-7.0); Hematocrit 36.2 % (36.0-46.0); Lymphocytes # (auto) 1.9 10 ^3/uL (0.4-5.4); Lymphocytes % (auto) 25.8 % (10.0-50.0); Mean Corpuscular Hemoglobin 27.4 pg (28.0-32.0); Mean Corpuscular Hgb Conc. 33.1 g/dL (32.0-36.0); Mean Corpuscular Volume 82.7 fL (80.0-100.0); Monocytes # (auto) 0.4 10 ^3/uL (0-1.3); Monocytes % (auto) 5.8 % (0.0-12.0); Neutrophils # (auto) 4.7 10 ^3/uL (1.6-8.6); Neutrophils % (auto) 63.3 % (37.0-80.0); Nucleated Red Blood Cells % 0.1 %; Platelet Count (auto) 158 10^3/uL (140-450); Red Blood Cells 4.38 10^6/uL (4.0-5.20); Red Cell Distribution Width 14.1 % (11.8-14.3); White Blood Cell 7.4 10^3/uL (4.4-10.8)
[2020-07-31 12:27] LABS: BUN/Creatinine Ratio 16.2; Calcium 8.9 mg/dL (8.5-10.1); Potassium 4.8 mmol/L (3.5-5.1)
[2020-07-31] MEDS: LORazepam 0.5 MG TAB PO PRN ×2 (12:43→23:01)
[2020-07-31 13:00] VITALS: BP 151/68
[2020-07-31 17:00] VITALS: BP 179/97
[2020-07-31] MEDS: hydrALAZINE HCL 20 MG/ML VL IV PRN (17:36)
[2020-07-31 22:00] VITALS: BP 143/94
[2020-07-31] MEDS: DOXYCYCLINE 100MG/250ML 250 ML IV SCH (22:38)
[2020-08-01] MEDS: ACCU-CHEK COMFORT CURVE STRIP VI SCH ×4 (00:17→18:10)
[2020-08-01] MEDS: InsuLIN REG 1unit/0.01ml Soln (100units/ml) SC SCH ×4 (01:01→18:32)
[2020-08-01] MEDS: HYDROcodone-ACET 5/325MG TAB PO PRN (02:29)
[2020-08-01 05:00] VITALS: BP 154/72
[2020-08-01 09:00] VITALS: BP 116/77
[2020-08-01] MEDS: MORPHINE SULF INJ 2 MG/ML SYRINGE 1ML IV PRN ×2 (10:23→15:54)
[2020-08-01] MEDS: DOXYCYCLINE 100MG/250ML 250 ML IV SCH (10:23)
[2020-08-01] MEDS ORDERED: FLUCONAZOLE 200MG/100ML 100 ML IV ONE (12:00)
[2020-08-01 13:00] VITALS: BP 172/79
[2020-08-01] MEDS: LORazepam 2MG/ML-1ML VIAL IV PRN (15:55)
[2020-08-01] MEDS: hydrALAZINE HCL 20 MG/ML VL IV PRN (16:01)
[2020-08-01 17:00] VITALS: BP 139/80
[2020-08-01 22:00] VITALS: BP 130/101
[2020-08-02] MEDS: ACCU-CHEK COMFORT CURVE STRIP VI SCH ×5 (00:32→23:13)
[2020-08-02] MEDS: InsuLIN REG 1unit/0.01ml Soln (100units/ml) SC SCH ×5 (00:40→23:12)
[2020-08-02] MEDS: HYDROcodone-ACET 5/325MG TAB PO PRN (03:28)
[2020-08-02 05:57] LABS: Basophils # (auto) 0.1 10 ^3/uL (0-0.2); Basophils % (auto) 0.7 % (0.0-2.0); Eosinophils # (auto) 0.2 10 ^3/uL (0-0.8); Eosinophils % (auto) 3.1 % (0.0-7.0); Hematocrit 33.2 % (36.0-46.0); Lymphocytes # (auto) 1.4 10 ^3/uL (0.4-5.4); Lymphocytes % (auto) 18.2 % (10.0-50.0); Mean Corpuscular Hgb Conc. 33.3 g/dL (32.0-36.0); Mean Corpuscular Volume 84.2 fL (80.0-100.0); Monocytes # (auto) 0.5 10 ^3/uL (0-1.3); Monocytes % (auto) 6.9 % (0.0-12.0); Neutrophils # (auto) 5.4 10 ^3/uL (1.6-8.6); Neutrophils % (auto) 71.1 % (37.0-80.0); Platelet Count (auto) 111 10^3/uL (140-450); Red Blood Cells 3.94 10^6/uL (4.0-5.20); Red Cell Distribution Width 14.3 % (11.8-14.3); White Blood Cell 7.6 10^3/uL (4.4-10.8)
[2020-08-02 06:51] LABS: Calcium 8.9 mg/dL (8.5-10.1); Potassium 3.8 mmol/L (3.5-5.1)
[2020-08-02 06:53] LABS: BUN/Creatinine Ratio 13.8
[2020-08-02 09:00] VITALS: BP 116/63
[2020-08-02] MEDS ORDERED: FLUCONAZOLE 200MG/100ML 100 ML IV SCH (10:00)
[2020-08-02 13:00] VITALS: BP 129/78
[2020-08-02] MEDS: LORazepam 2MG/ML-1ML VIAL IV PRN (14:58)
[2020-08-02 16:52] VITALS: BP 136/80
[2020-08-02 22:00] VITALS: BP 149/104
[2020-08-03 05:00] VITALS: BP 119/95
[2020-08-03] MEDS: InsuLIN REG 1unit/0.01ml Soln (100units/ml) SC SCH ×4 (05:41→23:56)
[2020-08-03] MEDS: ACCU-CHEK COMFORT CURVE STRIP VI SCH ×4 (05:42→23:51)
[2020-08-03 09:00] VITALS: BP 146/83
[2020-08-03] MEDS: LORazepam 2MG/ML-1ML VIAL IV PRN ×2 (11:51→21:45)
[2020-08-03 13:00] VITALS: BP 137/89
[2020-08-03] MEDS ORDERED: CITALOPRAM HYDROBR 20 MG TAB PO ONE (15:15)
[2020-08-03 17:00] VITALS: BP 146/90
[2020-08-03] MEDS: INSULIN 70/30 1unit/0.01ml Susp (100units/ml) SC SCH (17:45)
[2020-08-03] MEDS: METOPROLOL TARTRATE 25 MG TAB PO SCH (21:45)
[2020-08-03 22:25] VITALS: BP 135/62
[2020-08-04] MEDS: MORPHINE SULF INJ 2 MG/ML SYRINGE 1ML IV PRN (01:04)
[2020-08-04 05:19] VITALS: BP 115/85
[2020-08-04] MEDS: ACCU-CHEK COMFORT CURVE STRIP VI SCH ×3 (05:24→17:24)
[2020-08-04] MEDS: InsuLIN REG 1unit/0.01ml Soln (100units/ml) SC SCH ×3 (05:27→17:23)
[2020-08-04] MEDS: CITALOPRAM HYDROBR 20 MG TAB PO SCH (08:58)
[2020-08-04] MEDS: METOPROLOL TARTRATE 25 MG TAB PO SCH ×2 (08:58→21:37)
[2020-08-04] MEDS: amLODIPine BESYLATE 5 MG TAB PO SCH (08:59)
[2020-08-04 09:00] VITALS: BP 140/73
[2020-08-04] MEDS: LORazepam 2MG/ML-1ML VIAL IV PRN ×2 (11:17→17:57)
[2020-08-04] MEDS: INSULIN 70/30 1unit/0.01ml Susp (100units/ml) SC SCH ×2 (12:00→17:30)
[2020-08-04 13:00] VITALS: BP 150/79
[2020-08-04 16:56] VITALS: BP 148/87
[2020-08-04 22:00] VITALS: BP 156/70
[2020-08-05] MEDS: ACCU-CHEK COMFORT CURVE STRIP VI SCH ×5 (00:17→23:34)
[2020-08-05 05:00] VITALS: BP_SYST 136; BP_SYST 158; BP_DIAS 75; BP_DIAS 77
[2020-08-05] MEDS: InsuLIN REG 1unit/0.01ml Soln (100units/ml) SC SCH ×5 (05:57→23:34)
[2020-08-05 08:41] VITALS: BP 153/68
[2020-08-05] MEDS: CITALOPRAM HYDROBR 20 MG TAB PO SCH (09:10)
[2020-08-05] MEDS: amLODIPine BESYLATE 5 MG TAB PO SCH (09:11)
[2020-08-05] MEDS: METOPROLOL TARTRATE 25 MG TAB PO SCH ×2 (09:11→22:11)
[2020-08-05] MEDS: LORazepam 2MG/ML-1ML VIAL IV PRN (11:30)
[2020-08-05] MEDS: INSULIN 70/30 1unit/0.01ml Susp (100units/ml) SC SCH ×2 (11:36→17:30)
[2020-08-05 12:04] VITALS: BP 100/59
[2020-08-05 15:00] VITALS: BP 139/77
[2020-08-05 16:24] VITALS: BP 139/91
[2020-08-05] MEDS: MORPHINE SULF INJ 2 MG/ML SYRINGE 1ML IV PRN ×2 (17:34→23:48)
[2020-08-05 22:00] VITALS: BP 144/80
[2020-08-06] MEDS: MORPHINE SULF INJ 2 MG/ML SYRINGE 1ML IV PRN (04:46)
[2020-08-06 05:00] VITALS: BP 146/77
[2020-08-06] MEDS: ACCU-CHEK COMFORT CURVE STRIP VI SCH ×3 (06:00→17:31)
[2020-08-06] MEDS: InsuLIN REG 1unit/0.01ml Soln (100units/ml) SC SCH ×3 (06:00→17:31)
[2020-08-06] MEDS: CITALOPRAM HYDROBR 20 MG TAB PO SCH (08:10)
[2020-08-06] MEDS: METOPROLOL TARTRATE 25 MG TAB PO SCH ×2 (08:11→22:00)
[2020-08-06] MEDS: amLODIPine BESYLATE 5 MG TAB PO SCH (08:11)
[2020-08-06 09:00] VITALS: BP 128/82
[2020-08-06] MEDS: ENOXAPARIN SOD 40 MG/0.4 ML SYRINGE SC SCH (10:27)
[2020-08-06] MEDS: INSULIN 70/30 1unit/0.01ml Susp (100units/ml) SC SCH ×2 (11:27→16:20)
[2020-08-06 13:00] VITALS: BP 106/56
[2020-08-06] MEDS: LORazepam 2MG/ML-1ML VIAL IV PRN (14:14)
[2020-08-06 22:00] VITALS: BP 140/88
[2020-08-07] MEDS: InsuLIN REG 1unit/0.01ml Soln (100units/ml) SC SCH ×4 (00:23→18:00)
[2020-08-07] MEDS: ACCU-CHEK COMFORT CURVE STRIP VI SCH ×4 (00:27→18:00)
[2020-08-07] MEDS: LORazepam 2MG/ML-1ML VIAL IV PRN ×2 (00:57→12:49)
[2020-08-07 05:23] VITALS: BP 138/80
[2020-08-07 05:50] LABS: Basophils # (auto) 0.1 10 ^3/uL (0-0.2); Eosinophils # (auto) 0.2 10 ^3/uL (0-0.8); Eosinophils % (auto) 3.2 % (0.0-7.0); Hematocrit 32.5 % (36.0-46.0); Hemoglobin 10.7 g/dL (12.2-16.2); Lymphocytes # (auto) 2.1 10 ^3/uL (0.4-5.4); Lymphocytes % (auto) 31.2 % (10.0-50.0); Mean Corpuscular Hemoglobin 27.3 pg (28.0-32.0); Mean Corpuscular Hgb Conc. 32.9 g/dL (32.0-36.0); Mean Corpuscular Volume 82.7 fL (80.0-100.0); Monocytes # (auto) 0.5 10 ^3/uL (0-1.3); Monocytes % (auto) 8.1 % (0.0-12.0); Neutrophils # (auto) 3.8 10 ^3/uL (1.6-8.6); Neutrophils % (auto) 56.5 % (37.0-80.0); Nucleated Red Blood Cells % 0.1 %; Platelet Count (auto) 148 10^3/uL (140-450); Red Blood Cells 3.92 10^6/uL (4.0-5.20); Red Cell Distribution Width 13.8 % (11.8-14.3); White Blood Cell 6.8 10^3/uL (4.4-10.8)
[2020-08-07 06:07] LABS: Potassium 4.4 mmol/L (3.5-5.1)
[2020-08-07 06:10] LABS: BUN/Creatinine Ratio 23.1
[2020-08-07 09:09] VITALS: BP 116/73
[2020-08-07] MEDS: CITALOPRAM HYDROBR 20 MG TAB PO SCH (10:00)
[2020-08-07] MEDS: METOPROLOL TARTRATE 25 MG TAB PO SCH ×2 (10:02→21:30)
[2020-08-07] MEDS: amLODIPine BESYLATE 5 MG TAB PO SCH (10:03)
[2020-08-07] MEDS: ENOXAPARIN SOD 40 MG/0.4 ML SYRINGE SC SCH (10:03)
[2020-08-07] MEDS: INSULIN 70/30 1unit/0.01ml Susp (100units/ml) SC SCH ×2 (12:00→17:30)
[2020-08-07 13:00] VITALS: BP 116/66
[2020-08-07 16:58] VITALS: BP 138/76
[2020-08-07] MEDS: Glucerna Carbsteady SHAKE Vanilla 8oz PO SCH (18:18)
[2020-08-07 21:30] VITALS: BP 147/62
[2020-08-08] MEDS: ACCU-CHEK COMFORT CURVE STRIP VI SCH ×4 (00:09→18:00)
[2020-08-08 05:00] VITALS: BP 95/49
[2020-08-08] MEDS: InsuLIN REG 1unit/0.01ml Soln (100units/ml) SC SCH ×4 (06:00→18:37)
[2020-08-08] MEDS: Glucerna Carbsteady SHAKE Vanilla 8oz PO SCH ×2 (08:00→18:00)
[2020-08-08 09:00] VITALS: BP 128/90
[2020-08-08] MEDS: CITALOPRAM HYDROBR 20 MG TAB PO SCH (09:41)
[2020-08-08] MEDS: METOPROLOL TARTRATE 25 MG TAB PO SCH ×2 (09:42→21:51)
[2020-08-08] MEDS: ENOXAPARIN SOD 40 MG/0.4 ML SYRINGE SC SCH (09:43)
[2020-08-08] MEDS: amLODIPine BESYLATE 5 MG TAB PO SCH (09:43)
[2020-08-08] MEDS ORDERED: MET25T PO (11:26)
[2020-08-08] MEDS ORDERED: LORazepam 0.5 MG TAB PO PRN (11:30)
[2020-08-08] MEDS: INSULIN 70/30 1unit/0.01ml Susp (100units/ml) SC SCH ×2 (12:35→18:36)
[2020-08-08 13:00] VITALS: BP 117/80
[2020-08-08 17:00] VITALS: BP 125/75
[2020-08-08] MEDS ORDERED: TUBERCULIN PPD 5 UNIT/0.1 ML ID ONE (17:00)
[2020-08-08 21:30] VITALS: BP 111/82
[2020-08-09] MEDS: ACCU-CHEK COMFORT CURVE STRIP VI SCH ×5 (00:04→23:31)
[2020-08-09 05:00] VITALS: BP 135/95
[2020-08-09] MEDS: InsuLIN REG 1unit/0.01ml Soln (100units/ml) SC SCH ×5 (05:53→23:31)
[2020-08-09] MEDS: Glucerna Carbsteady SHAKE Vanilla 8oz PO SCH ×2 (08:00→18:00)
[2020-08-09] MEDS: CITALOPRAM HYDROBR 20 MG TAB PO SCH (10:28)
[2020-08-09] MEDS: ENOXAPARIN SOD 40 MG/0.4 ML SYRINGE SC SCH (10:29)
[2020-08-09] MEDS: LOSARTAN POTASSIUM 25 MG TAB PO SCH (10:29)
[2020-08-09] MEDS: METOPROLOL TARTRATE 25 MG TAB PO SCH ×2 (10:30→22:22)
[2020-08-09] MEDS: INSULIN 70/30 1unit/0.01ml Susp (100units/ml) SC SCH ×2 (12:03→17:30)
[2020-08-09] MEDS: HYDROcodone-ACET 5/325MG TAB PO PRN ×2 (12:05→17:18)
[2020-08-09] MEDS ORDERED: D5W/SOD CHLO 0.9% 1,000 ML IV ONE (19:00)
[2020-08-10] MEDS: ACCU-CHEK COMFORT CURVE STRIP VI SCH ×4 (05:43→23:29)
[2020-08-10] MEDS: InsuLIN REG 1unit/0.01ml Soln (100units/ml) SC SCH ×4 (05:43→23:26)
[2020-08-10 06:03] LABS: Basophils # (auto) 0.1 10 ^3/uL (0-0.2); Basophils % (auto) 1.2 % (0.0-2.0); Eosinophils # (auto) 0.2 10 ^3/uL (0-0.8); Eosinophils % (auto) 4.7 % (0.0-7.0); Hematocrit 29.6 % (36.0-46.0); Lymphocytes # (auto) 1.8 10 ^3/uL (0.4-5.4); Lymphocytes % (auto) 34.7 % (10.0-50.0); Mean Corpuscular Hemoglobin 27.7 pg (28.0-32.0); Mean Corpuscular Hgb Conc. 33.6 g/dL (32.0-36.0); Mean Corpuscular Volume 82.5 fL (80.0-100.0); Monocytes # (auto) 0.5 10 ^3/uL (0-1.3); Monocytes % (auto) 9.4 % (0.0-12.0); Neutrophils # (auto) 2.6 10 ^3/uL (1.6-8.6); Platelet Count (auto) 153 10^3/uL (140-450); Red Blood Cells 3.59 10^6/uL (4.0-5.20); Red Cell Distribution Width 14.2 % (11.8-14.3); White Blood Cell 5.1 10^3/uL (4.4-10.8)
[2020-08-10 06:05] VITALS: BP 142/99
[2020-08-10 06:20] LABS: Potassium 3.9 mmol/L (3.5-5.1)
[2020-08-10 06:29] LABS: Albumin 2.3 g/dL (3.4-5.0); BUN/Creatinine Ratio 18.3; Bilirubin, Total 0.7 mg/dL (0.2-1.0); Calcium 8.8 mg/dL (8.5-10.1); Total Protein 6.4 g/dL (6.4-8.2)
[2020-08-10 09:00] VITALS: BP 154/76
[2020-08-10] MEDS: Glucerna Carbsteady SHAKE Vanilla 8oz PO SCH ×2 (09:14→17:41)
[2020-08-10] MEDS: CITALOPRAM HYDROBR 20 MG TAB PO SCH (10:29)
[2020-08-10] MEDS: ENOXAPARIN SOD 40 MG/0.4 ML SYRINGE SC SCH (10:29)
[2020-08-10] MEDS: METOPROLOL TARTRATE 25 MG TAB PO SCH ×2 (10:30→21:39)
[2020-08-10] MEDS: LOSARTAN POTASSIUM 25 MG TAB PO SCH (10:31)
[2020-08-10] MEDS: INSULIN 70/30 1unit/0.01ml Susp (100units/ml) SC SCH (12:21)
[2020-08-10 17:17] VITALS: BP 164/81
[2020-08-10 21:56] VITALS: BP 139/108
[2020-08-11] MEDS: InsuLIN REG 1unit/0.01ml Soln (100units/ml) SC SCH ×3 (05:38→18:00)
[2020-08-11] MEDS: ACCU-CHEK COMFORT CURVE STRIP VI SCH ×3 (05:38→18:15)
[2020-08-11] MEDS: Glucerna Carbsteady SHAKE Vanilla 8oz PO SCH ×2 (08:38→18:15)
[2020-08-11 09:00] VITALS: BP 146/92
[2020-08-11] MEDS: CITALOPRAM HYDROBR 20 MG TAB PO SCH (09:46)
[2020-08-11] MEDS: LOSARTAN POTASSIUM 25 MG TAB PO SCH (09:46)
[2020-08-11] MEDS: METOPROLOL TARTRATE 25 MG TAB PO SCH (09:46)
[2020-08-11] MEDS: ENOXAPARIN SOD 40 MG/0.4 ML SYRINGE SC SCH (09:48)
[2020-08-11] MEDS: INSULIN 70/30 1unit/0.01ml Susp (100units/ml) SC SCH (12:36)
[2020-08-11 13:00] VITALS: BP 132/97
[2020-08-11 19:21] VITALS: BP 146/92
== END 2020-08-11 20:50 | disposition hospice, inpatient (51) | DRG 720 ==
LOC: EDSEX 02:47 → EDBD 02:47 → ER 02:51 → TELE 07:01 → DOU IN ICU 08:45 → TELE-WESTW 07-29 15:40 → WEST WING 08-04 13:18 → CENTRAL 08-10 07:51
PROVIDERS: ADMIT Hospitalist; ATTEND Internal Medicine
DX: A41.9 Sepsis, unspecified organism (principal); I21.A1 Myocardial infarction type 2; J96.21 Acute and chronic respiratory failure with hypoxia; N17.0 Acute kidney failure with tubular necrosis; E44.0 Moderate protein-calorie malnutrition; G93.41 Metabolic encephalopathy; R64 Cachexia; J18.9 Pneumonia, unspecified organism; E11.65 Type 2 diabetes mellitus with hyperglycemia; N39.0 Urinary tract infection, site not specified; E87.0 Hyperosmolality and hypernatremia; E86.0 Dehydration; Z91.018 Allergy to other foods; Z20.822 Contact with and (suspected) exposure to COVID-19; Z68.22 Body mass index [BMI] 22.0-22.9, adult; F12.90 Cannabis use, unspecified, uncomplicated; F15.90 Other stimulant use, unspecified, uncomplicated; Z66 Do not resuscitate; Z79.4 Long term (current) use of insulin; Z79.899 Other long term (current) drug therapy; F32.9 Major depressive disorder, single episode, unspecified; I10 Essential (primary) hypertension; E78.5 Hyperlipidemia, unspecified; F41.9 Anxiety disorder, unspecified; Z86.73 Personal history of transient ischemic attack (TIA), and cerebral infarction without residual deficits
CPT/HCPCS: 36415; 36600; 70450; 71045; 76775; 80048; 80053; 80307; 81001; 82570; 82805; 82962; 83605; 83735; 83880; 84156; 84300; 84484; 85025; 85379; 85610; 87040; 87077; 87081; 87086; 87088; 87186; 87426; 92610; 93005; 93970; 96361; 96365; 99291; G0378; J0696; J1450; J1815; J2543; J3480; J3490; J7042